=== PATIENT | female | born 1955 | race Two or more races ===

== ENCOUNTER 2020-06-18 11:35 | Inpatient (IN) | payer OTHER, MEDICAID ==
[~2020-06-18] VITALS: Ht 160 cm; Wt 126.0 kg
[2020-06-18 13:04] LABS: Basophils # (auto) 0 10 ^3/uL (0-0.2); Eosinophils # (auto) 0.1 10 ^3/uL (0-0.8); Lymphocytes # (auto) 0.5 10 ^3/uL (0.4-5.4); Monocytes # (auto) 0.2 10 ^3/uL (0-1.3); Neutrophils # (auto) 1.2 10 ^3/uL (1.6-8.6); Red Blood Cells 2.74 10^6/uL (4.0-5.20)
[2020-06-18 13:06] LABS: Basophils % (auto) 0.8 % (0.0-2.0); Hematocrit 25.4 % (36.0-46.0); Lymphocytes % (auto) 24.5 % (10.0-50.0); Mean Corpuscular Hemoglobin 29.3 pg (28.0-32.0); Mean Corpuscular Hgb Conc. 31.6 g/dL (32.0-36.0); Mean Corpuscular Volume 92.7 fL (80.0-100.0); Monocytes % (auto) 8.8 % (0.0-12.0); Neutrophils % (auto) 59.9 % (37.0-80.0); Nucleated Red Blood Cells % 0.3 %; Red Cell Distribution Width 18.2 % (11.8-14.3)
[2020-06-18 13:21] LABS: INR 1.24 (0.9-1.15); Partial Thromboplastin Time 31.9 sec (23.64-32.05)
[2020-06-18 13:31] LABS: Albumin 2.8 g/dL (3.4-5.0); Calcium 9.6 mg/dL (8.5-10.1); Potassium 3.8 mmol/L (3.5-5.1)
[2020-06-18 13:35] LABS: BUN/Creatinine Ratio 16.2; Bilirubin, Total 1.5 mg/dL (0.2-1.0); Total Protein 6.9 g/dL (6.4-8.2)
[2020-06-18 15:44] LABS: Platelet Count (auto) 63 10^3/uL (140-450)
[2020-06-18] MEDS ORDERED: FUROSEMIDE 40 MG/4 ML VIAL IV ONE (18:45)
[2020-06-18] MEDS ORDERED: DOCUSATE SOD 100 MG CAP PO PRN (18:45)
[2020-06-18] MEDS ORDERED: ONDANSETRON HCL 4 MG/2 ML VIAL IV PRN (18:45)
[2020-06-18] MEDS ORDERED: ACETAMINOPHEN 500 MG TAB PO PRN (18:45)
[2020-06-18] MEDS ORDERED: DEXTROSE (50%) 50ML SYRG IV PRN (19:15)
[2020-06-18] MEDS ORDERED: cefTRIAXone 1GM/50ML D5W 50 ML IV ONE (19:30)
[2020-06-18] MEDS ORDERED: ATORVASTATIN 20 MG TAB PO SCH (22:00)
[2020-06-18] MEDS ORDERED: InsuLIN REG 1unit/0.01ml Soln (100units/ml) SC SCH (22:00)
[2020-06-19] VITALS (7 sets, daily range): BP systolic 97–115; BP diastolic 49–62
[2020-06-19] MEDS: ACCU-CHEK COMFORT CURVE STRIP VI SCH ×5 (01:02→21:51)
[2020-06-19] MEDS: CLINDAMYCIN 600MG IV 50 ML IV SCH ×4 (01:55→21:21)
[2020-06-19 03:47] LABS: Basophils # (auto) 0 10 ^3/uL (0-0.2); Eosinophils # (auto) 0.1 10 ^3/uL (0-0.8); Hemoglobin 8.5 g/dL (12.2-16.2); Mean Corpuscular Hemoglobin 29.4 pg (28.0-32.0); Monocytes # (auto) 0.3 10 ^3/uL (0-1.3); Neutrophils # (auto) 1.1 10 ^3/uL (1.6-8.6); Nucleated Red Blood Cells % 0.1 %; White Blood Cell 2.1 10^3/uL (4.4-10.8)
[2020-06-19 03:50] LABS: Basophils % (auto) 0.7 % (0.0-2.0); Eosinophils % (auto) 6.6 % (0.0-7.0); Hematocrit 26.2 % (36.0-46.0); Lymphocytes # (auto) 0.5 10 ^3/uL (0.4-5.4); Lymphocytes % (auto) 26.2 % (10.0-50.0); Mean Corpuscular Hgb Conc. 32.5 g/dL (32.0-36.0); Mean Corpuscular Volume 90.5 fL (80.0-100.0); Monocytes % (auto) 13.7 % (0.0-12.0); Neutrophils % (auto) 52.8 % (37.0-80.0); Platelet Count (auto) 61 10^3/uL (140-450)
[2020-06-19 04:02] LABS: Calcium 9.5 mg/dL (8.5-10.1); Potassium 3.6 mmol/L (3.5-5.1)
[2020-06-19 04:05] LABS: BUN/Creatinine Ratio 15.5; Bilirubin, Total 1.6 mg/dL (0.2-1.0); Total Protein 7.2 g/dL (6.4-8.2)
[2020-06-19 05:50] LABS: Urine Bacteria FEW /hpf (None Seen); Urine Blood Negative /uL (Negative); Urine Hyaline Cast FEW /lpf (0 - 2); Urine Specific Gravity 1.004 (1.001-1.035); Urine WBC <1 /hpf (0 - 5)
[2020-06-19] MEDS: LEVOTHYROXINE SODIUM 25 MCG TAB PO SCH (06:04)
[2020-06-19] MEDS: InsuLIN REG 1unit/0.01ml Soln (100units/ml) SC SCH ×4 (06:04→21:51)
[2020-06-19] MEDS: cefTRIAXone 1GM/50ML D5W 50 ML IV SCH (09:34)
[2020-06-19] MEDS ORDERED: PANTOPRAZOLE 40 MG TAB PO SCH (10:00)
[2020-06-19] MEDS ORDERED: LOSARTAN POTASSIUM 50 MG TAB PO SCH (10:00)
[2020-06-19] MEDS ORDERED: DEXTROSE (50%) 50ML SYRG IV PRN (15:15)
[2020-06-19] MEDS: traMADol HCL 50 MG TAB PO PRN ×2 (15:54→21:52)
[2020-06-19] MEDS ORDERED: BECL40AE11 IN (16:27)
[2020-06-19] MEDS ORDERED: PANT1INJ3 PO (16:27)
[2020-06-19] MEDS ORDERED: LORA-154 PO (16:27)
[2020-06-19] MEDS ORDERED: LEVO25TA6 PO (16:27)
[2020-06-19] MEDS ORDERED: ATOR10TA52 PO (16:27)
[2020-06-19] MEDS ORDERED: FERR-20 PO (16:27)
[2020-06-19] MEDS ORDERED: FLUO40CA PO (16:27)
[2020-06-19] MEDS ORDERED: LOSA-39 PO (16:27)
[2020-06-19] MEDS ORDERED: FURO40TA4 PO (16:27)
[2020-06-19] MEDS ORDERED: ALBU0.084 NEB (16:27)
[2020-06-19] MEDS ORDERED: DOCU100T15 PO (16:27)
[2020-06-19] MEDS ORDERED: TRAM50TA2 PO (16:27)
[2020-06-19] MEDS ORDERED: TIOTCAP IN (16:27)
[2020-06-19] MEDS: FAMOTIDINE 20 MG TAB PO SCH (21:21)
[2020-06-20 05:00] VITALS: BP 107/54
[2020-06-20] MEDS: CLINDAMYCIN 600MG IV 50 ML IV SCH ×3 (05:23→21:43)
[2020-06-20] MEDS: ACCU-CHEK COMFORT CURVE STRIP VI SCH ×4 (06:05→21:44)
[2020-06-20] MEDS: InsuLIN REG 1unit/0.01ml Soln (100units/ml) SC SCH ×4 (06:05→21:48)
[2020-06-20] MEDS: LEVOTHYROXINE SODIUM 25 MCG TAB PO SCH (06:06)
[2020-06-20 07:46] LABS: Albumin 2.7 g/dL (3.4-5.0); BUN/Creatinine Ratio 17.6; Calcium 9.2 mg/dL (8.5-10.1); Magnesium 1.8 mg/dL (1.6-2.6); Potassium 3.7 mmol/L (3.5-5.1)
[2020-06-20 07:49] LABS: Bilirubin, Total 1.5 mg/dL (0.2-1.0); Total Protein 6.5 g/dL (6.4-8.2)
[2020-06-20 07:51] LABS: % Iron Saturation 15.5 % (15-50)
[2020-06-20 08:04] LABS: Ferritin 16.3 ng/mL (10-322)
[2020-06-20 08:45] VITALS: BP 123/80
[2020-06-20] MEDS: FAMOTIDINE 20 MG TAB PO SCH ×2 (08:59→21:43)
[2020-06-20] MEDS: cefTRIAXone 1GM/50ML D5W 50 ML IV SCH (08:59)
[2020-06-20] MEDS: traMADol HCL 50 MG TAB PO PRN ×2 (09:05→21:46)
[2020-06-20 13:00] VITALS: BP 111/58
[2020-06-20] MEDS ORDERED: diphenhdrAMINE HCL 25 MG CAP PO PRN (13:30)
[2020-06-20 13:42] LABS: Hemoglobin 7.7 g/dL (12.2-16.2)
[2020-06-20 13:44] LABS: Hematocrit 24.2 % (36.0-46.0); Mean Corpuscular Hemoglobin 28.9 pg (28.0-32.0); Mean Corpuscular Hgb Conc. 31.8 g/dL (32.0-36.0); Platelet Count (auto) 62 10^3/uL (140-450); Red Blood Cells 2.66 10^6/uL (4.0-5.20); Red Cell Distribution Width 18.3 % (11.8-14.3)
[2020-06-20 13:47] LABS: White Blood Cell 1.8 10^3/uL (4.4-10.8)
[2020-06-20 13:50] LABS: Band Neutrophils % (manual) 0; Basophils % (manual) 0 (0.0-2.0); Blast Cells 0; Metamyelocytes % 0; Myelocytes % 0; Promyelocytes % 0; Reactive Lymphocytes 0
[2020-06-20 14:35] LABS: Eosinophils % (manual) 8 (0-7); Lymphocytes % (manual) 35 (10.0-50.0); Monocytes % (manual) 5 (0-12)
[2020-06-20] MEDS ORDERED: FILGRASTIM (TBO) 300 MCG/0.5 ML SYRG SC ONE (15:45)
[2020-06-20] MEDS ORDERED: ALBUTEROL SULF 2.5 MG/0.5ML(0.5%) NEB SOLN NEB PRN (15:45)
[2020-06-20] MEDS ORDERED: MAGNESIUM SULFATE 1GM/100ML 100 ML IV ONE (15:45)
[2020-06-20] MEDS ORDERED: POTASSIUM CHL 20 Meq TABLET PO ONE (15:45)
[2020-06-20] MEDS ORDERED: IPRATROPIUM BROM 0.5 MG/2.5ML INH SOL NEB PRN (15:45)
[2020-06-20 17:00] VITALS: BP 122/54
[2020-06-20] MEDS: FERROUS SULFATE 325 MG TAB PO SCH (18:12)
[2020-06-20 20:12] VITALS: BP 122/54
[2020-06-20 22:00] VITALS: BP 111/65
[2020-06-21] MEDS: traMADol HCL 50 MG TAB PO PRN ×2 (04:24→11:27)
[2020-06-21 05:00] VITALS: BP 105/58
[2020-06-21] MEDS: CLINDAMYCIN 600MG IV 50 ML IV SCH ×2 (06:04→14:36)
[2020-06-21] MEDS: ACCU-CHEK COMFORT CURVE STRIP VI SCH ×2 (06:04→11:38)
[2020-06-21] MEDS: InsuLIN REG 1unit/0.01ml Soln (100units/ml) SC SCH (06:05)
[2020-06-21] MEDS ORDERED: LEVOTHYROXINE SODIUM 25 MCG TAB PO SCH (07:00)
[2020-06-21 07:22] LABS: Basophils # (auto) 0 10 ^3/uL (0-0.2); Hemoglobin 8.1 g/dL (12.2-16.2); Lymphocytes # (auto) 0.7 10 ^3/uL (0.4-5.4); White Blood Cell 6.6 10^3/uL (4.4-10.8)
[2020-06-21 07:24] LABS: Basophils % (auto) 0.3 % (0.0-2.0); Eosinophils # (auto) 0.1 10 ^3/uL (0-0.8); Eosinophils % (auto) 2.1 % (0.0-7.0); Hematocrit 24.6 % (36.0-46.0); Lymphocytes % (auto) 10.4 % (10.0-50.0); Mean Corpuscular Hemoglobin 29.8 pg (28.0-32.0); Mean Corpuscular Hgb Conc. 32.7 g/dL (32.0-36.0); Monocytes # (auto) 0.4 10 ^3/uL (0-1.3); Monocytes % (auto) 6.2 % (0.0-12.0); Neutrophils # (auto) 5.3 10 ^3/uL (1.6-8.6); Platelet Count (auto) 58 10^3/uL (140-450); Red Blood Cells 2.71 10^6/uL (4.0-5.20); Red Cell Distribution Width 18.4 % (11.8-14.3)
[2020-06-21 07:42] LABS: Calcium 9.5 mg/dL (8.5-10.1); Magnesium 2.2 mg/dL (1.6-2.6); Potassium 3.7 mmol/L (3.5-5.1)
[2020-06-21 07:45] LABS: BUN/Creatinine Ratio 16.2; Bilirubin, Total 1.5 mg/dL (0.2-1.0)
[2020-06-21] MEDS: FERROUS SULFATE 325 MG TAB PO SCH ×2 (07:49→12:44)
[2020-06-21 08:48] VITALS: BP 118/62
[2020-06-21 09:22] LABS: Hepatitis B Surface Antibody Negative
[2020-06-21 09:54] LABS: Hepatitis A Total Antibody Positive
[2020-06-21] MEDS ORDERED: FILGRASTIM (TBO) 300 MCG/0.5 ML SYRG SC SCH (10:00)
[2020-06-21] MEDS ORDERED: FLUoxetine HCL 20 MG CAP PO SCH (10:00)
[2020-06-21] MEDS: cefTRIAXone 1GM/50ML D5W 50 ML IV SCH (10:20)
[2020-06-21] MEDS: FAMOTIDINE 20 MG TAB PO SCH (10:20)
[2020-06-21 11:36] LABS: Hepatitis B Core Total AB Negative; Hepatitis B Surface Antigen Negative (Negative); Hepatitis C Antibody Negative (Negative)
[2020-06-21 12:44] VITALS: BP 99/43
[2020-06-21 16:41] VITALS: BP 120/57
[2020-06-21] MEDS ORDERED: SACC250C PO (16:41)
[2020-06-21] MEDS ORDERED: CLIN300C8 PO (16:41)
== END 2020-06-21 18:35 | disposition home health service (06) | DRG 808 ==
LOC: ER 11:35 → TELE 11:36 → TELE-WESTW 06-19 03:19
PROVIDERS: ADMIT Nurse Practitioner Family; ATTEND Internal Medicine
DX: D61.818 Other pancytopenia (principal); N17.0 Acute kidney failure with tubular necrosis; K76.6 Portal hypertension; I13.0 Hypertensive heart and chronic kidney disease with heart failure and stage 1 through stage 4 chronic kidney disease, or unspecified chronic kidney disease; Z68.42 Body mass index [BMI] 45.0-49.9, adult; I50.32 Chronic diastolic (congestive) heart failure; S31.109A Unspecified open wound of abdominal wall, unspecified quadrant without penetration into peritoneal cavity, initial encounter; J44.9 Chronic obstructive pulmonary disease, unspecified; M79.7 Fibromyalgia; E78.5 Hyperlipidemia, unspecified; N18.9 Chronic kidney disease, unspecified; E11.22 Type 2 diabetes mellitus with diabetic chronic kidney disease; E66.01 Morbid (severe) obesity due to excess calories; R16.1 Splenomegaly, not elsewhere classified; E03.9 Hypothyroidism, unspecified; B95.61 Methicillin susceptible Staphylococcus aureus infection as the cause of diseases classified elsewhere; E11.622 Type 2 diabetes mellitus with other skin ulcer; C50.919 Malignant neoplasm of unspecified site of unspecified female breast; I25.10 Atherosclerotic heart disease of native coronary artery without angina pectoris; K74.69 Other cirrhosis of liver; K80.20 Calculus of gallbladder without cholecystitis without obstruction; Z98.84 Bariatric surgery status; Z92.3 Personal history of irradiation; Z85.3 Personal history of malignant neoplasm of breast; Z82.49 Family history of ischemic heart disease and other diseases of the circulatory system; Z83.3 Family history of diabetes mellitus; Z91.041 Radiographic dye allergy status; Z91.048 Other nonmedicinal substance allergy status; Z90.49 Acquired absence of other specified parts of digestive tract; Z98.51 Tubal ligation status; Z79.899 Other long term (current) drug therapy
CPT/HCPCS: 36415; 71045; 71250; 74176; 80048; 80053; 81001; 82105; 82247; 82270; 82607; 82728; 82962; 83010; 83036; 83540; 83550; 83735; 83880; 84443; 85007; 85025; 85027; 85045; 85610; 85730; 86038; 86141; 86704; 86706; 86708; 86803; 86850; 86870; 86880; 86900; 86901; 86905; 86906; 86971; 87077; 87186; 87205; 87340; 93005; G0378; J0696; J1447; J1815; J3490